=== PATIENT | female | born 2000 | race Caucasian/White ===

== ENCOUNTER 2025-09-30 20:13 | Inpatient (IN) | payer BC ==
[~2025-09-30 20:13] MED LIST: Iopamidol-370 76% 500 ML MDV (1 ML CHARGE) ONE
[2025-09-30] MEDS ORDERED: Ondansetron PF 4 MG/2 ML Vial ONE ×2 (21:12→23:08)
[2025-09-30 21:21] LABS: #Basophils 0.06 10x3/uL (0.0-0.2); #Eosinophils 0.05 10x3/uL (0.0-0.7); #Monocytes 0.26 10x3/uL (0.11-0.59); #Neutrophils 2.47 10x3/uL (1.40-6.50); %Basophils 1.5 % (0.0-1.0); %Eosinophils 1.3 % (0.0-10.0); %Lymphocytes 26.3 % (21.0-51.0); %Monocytes 6.7 % (0.0-10.0); %Neutrophils 63.7 % (42.0-75.0); Hematocrit 42.0 % (36.0-47.0); Hemoglobin 14.0 g/dL (12.0-16.0); Mean Corpuscular Hemoglobin 35.8 pg (27.0-31.0); Mean Corpuscular Volume 107.4 fL (78.0-98.0); Platelet Count 184 10x3/uL (130-400); Red Blood Cell (RBC) Count 3.91 mill/uL (4.20-5.40); White Blood Cell (WBC) Count 3.88 10x3/uL (4.8-10.8)
[2025-09-30 21:26] LABS: Bacteria/HPF None Seen HPF (None Seen); CAUTI Indications for Culture Dysuria,urgency,freq; Glucose, Urine (Dipstick) Normal (Negative); Leukocyte Negative Leu/uL (Negative); Protein, Urine (Dipstick) 70 mg/dL (Neg-Trace); RBC/HPF 0-3 HPF (0-3); Specific Gravity, Urine 1.027 (1.002-1.036); WBC/HPF 0-3 HPF (0-3)
[2025-09-30 21:27] LABS: BHCG - Serum Negative (NEGATIVE); Pregs Control Background? CLEAR/WHITE (CLR/WHITE); Pregs Control Bar Appear? YES (CONTROL BAR)
[2025-09-30 21:27] LABS: Urine Culture Reflex No No
[2025-09-30 22:53] LABS: Acetaminophen Less than 10 mcg/mL (Less than 10); Salicylate Less than 8.0 mg/dL (Less than 8.0)
[2025-09-30 23:44] LABS: ALT (SGPT) 153 U/L (Less than 34); AST (SGOT) 285 U/L (11-34); Albumin 4.0 g/dL (3.1-4.5); Alkaline Phosphatase 164 U/L (40-110); BUN (Urea Nitrogen) 9 mg/dL (7.0-18.7); Bilirubin, Total 0.7 mg/dL (0.3-1.2); Calc. Creatinine Clearance 0 mL/min (70-130); Calcium 9.1 mg/dL (7.8-10.44); Carbon Dioxide Less than 8 mmol/L (22-29); Chloride 103 mmol/L (98-107); Globulin 3.7 g/dL (2.4-3.5); Glucose 98 mg/dL (70-105); Lipase 79 U/L (8-78); Potassium 5.4 mmol/L (3.5-5.1); Sodium 137 mmol/L (136-145)
[2025-10-01 00:35] LABS: Base Excess -18.9 mEq/L (-2.0 to +3.0); Calcium, Ionized (venous) 1.06 mmol/L (1.16-1.32); Chloride (VBG) 105 mmol/L (98-106); Hematocrit-VBG 39 % (36.0-47.0); Hemoglobin (Hb) 13.3 g/dL (11.7-15.5); Potassium (VBG) 5.35 mmol/L (3.70-5.30); Sodium 138 mmol/L (133-146)
[2025-10-01 00:37] LABS: Actual Bicarbonate (HCO3v) 7.5 mEq/L (22-28)
[2025-10-01 00:43] LABS: INR-International Normal Ratio 1.1; Prothrombin Time 13.9 sec (12.0-14.7)
[2025-10-01 00:44] LABS: PTT 28.0 sec (22.9-36.1)
[2025-10-01] MEDS ORDERED: Electrolyte Replacement Protocol 1 EACH FS SCH (02:15)
[2025-10-01] MEDS ORDERED: Potassium Chloride 20 MEQ in Premix 1 BAG IVPB PRN (03:00)
[2025-10-01] MEDS ORDERED: PHOS-NAK 1 PKT PACK PO PRN (03:00)
[2025-10-01] MEDS ORDERED: Magnesium 2 GM/50 ML(in water) 2 GM in Premix 1 BAG IVPB PRN (03:00)
[2025-10-01 08:39] LABS: #Basophils 0.03 10x3/uL (0.0-0.2); #Eosinophils Less than 0.03 10x3/uL (0.0-0.7); #Monocytes 0.71 10x3/uL (0.11-0.59); #Neutrophils 2.42 10x3/uL (1.40-6.50); %Basophils 0.7 % (0.0-1.0); %Eosinophils 0.2 % (0.0-10.0); %Lymphocytes 29.6 % (21.0-51.0); %Monocytes 15.7 % (0.0-10.0); %Neutrophils 53.4 % (42.0-75.0); Hematocrit 33.7 % (36.0-47.0); Hemoglobin 11.1 g/dL (12.0-16.0); Mean Corpuscular Hemoglobin 35.7 pg (27.0-31.0); Mean Corpuscular Volume 108.4 fL (78.0-98.0); Platelet Count 141 10x3/uL (130-400); Red Blood Cell (RBC) Count 3.11 mill/uL (4.20-5.40); White Blood Cell (WBC) Count 4.53 10x3/uL (4.8-10.8)
[2025-10-01] MEDS: Ondansetron PF 4 MG/2 ML Vial IVP PRN (08:45)
[2025-10-01] MEDS: Pantoprazole 40 MG DR.TAB PO SCH (08:57)
[2025-10-01] MEDS: Mupirocin 1 GM TUBE NASAL DECOLONIZATION NASAL SCH (08:58)
[2025-10-01] MEDS ORDERED: Multivit, Therapeutic 1 TAB PO SCH (09:00)
[2025-10-01] MEDS ORDERED: Enoxaparin 40 MG (0.4 mL) SYRINGE SC SCH (09:00)
[2025-10-01] MEDS ORDERED: Folic Acid 1 MG TAB PO SCH (09:00)
[2025-10-01 09:09] LABS: ALT (SGPT) 108 U/L (Less than 34); AST (SGOT) 175 U/L (11-34); Albumin 3.2 g/dL (3.1-4.5); Alkaline Phosphatase 120 U/L (40-110); Anion Gap 16 mmol/L (10-20); BUN (Urea Nitrogen) 8 mg/dL (7.0-18.7); Bilirubin, Total 1.0 mg/dL (0.3-1.2); Calc. Creatinine Clearance 163 mL/min (70-130); Calcium 8.1 mg/dL (7.8-10.44); Carbon Dioxide 17 mmol/L (22-29); Chloride 104 mmol/L (98-107); Globulin 2.8 g/dL (2.4-3.5); Glucose 155 mg/dL (70-105); Potassium 4.1 mmol/L (3.5-5.1); Sodium 133 mmol/L (136-145)
[2025-10-01] MEDS: Multivitamins, Adult 10 ML, Thiamine HCl 100 MG, Folic Acid 1 MG in Dextrose 5 %-0.45 %... IV SCH (09:52)
[2025-10-01] MEDS: Milk Of Magnesia 30 ML UDCUP PO SCH (11:51)
[2025-10-01] MEDS: Senokot S 8.6-50 MG TAB PO SCH (11:51)
[2025-10-01] MEDS: Sodium Bicarbonate Tab 325 MG TAB PO SCH (12:56)
[2025-10-01] MEDS: FLU (Fluarix Triv) 25-26 (6MOS UP)/PF 45 MCG/0.5 ML Syringe IM ONE (12:57)
[2025-10-01] MEDS: PNEUMOC 20-VAL CONJ-DIP CRM/PF 0.5 ML SYRINGE IM ONE (12:57)
[2025-10-01 13:41] LABS: ALT (SGPT) 103 U/L (Less than 34); AST (SGOT) 161 U/L (11-34); Albumin 3.3 g/dL (3.1-4.5); Alkaline Phosphatase 120 U/L (40-110); Anion Gap 15 mmol/L (10-20); BUN (Urea Nitrogen) 7 mg/dL (7.0-18.7); Bilirubin, Total 1.0 mg/dL (0.3-1.2); Calc. Creatinine Clearance 168 mL/min (70-130); Calcium 8.4 mg/dL (7.8-10.44); Carbon Dioxide 19 mmol/L (22-29); Chloride 104 mmol/L (98-107); Globulin 2.8 g/dL (2.4-3.5); Glucose 185 mg/dL (70-105); Potassium 3.8 mmol/L (3.5-5.1); Sodium 134 mmol/L (136-145)
[2025-10-02] MEDS: Calcium Carbonate 500 MG ChewTAB PO PRN (02:21)
[2025-10-02 03:29] LABS: #Basophils Less than 0.03 10x3/uL (0.0-0.2); #Eosinophils 0.04 10x3/uL (0.0-0.7); #Monocytes 0.45 10x3/uL (0.11-0.59); #Neutrophils 3.02 10x3/uL (1.40-6.50); %Basophils 0.5 % (0.0-1.0); %Eosinophils 0.9 % (0.0-10.0); %Lymphocytes 18.4 % (21.0-51.0); %Monocytes 10.3 % (0.0-10.0); %Neutrophils 69.4 % (42.0-75.0); Hematocrit 33.7 % (36.0-47.0); Hemoglobin 11.1 g/dL (12.0-16.0); Mean Corpuscular Hemoglobin 35.1 pg (27.0-31.0); Mean Corpuscular Volume 106.6 fL (78.0-98.0); Platelet Count 127 10x3/uL (130-400); Red Blood Cell (RBC) Count 3.16 mill/uL (4.20-5.40); White Blood Cell (WBC) Count 4.35 10x3/uL (4.8-10.8)
[2025-10-02 03:48] LABS: Albumin 3.1 g/dL (3.1-4.5); Anion Gap 12 mmol/L (10-20); BUN (Urea Nitrogen) 4 mg/dL (7.0-18.7); BUN/Creatinine Ratio 7.69; Calc. Creatinine Clearance 185 mL/min (70-130); Calcium 8.7 mg/dL (7.8-10.44); Carbon Dioxide 22 mmol/L (22-29); Chloride 101 mmol/L (98-107); Glucose 148 mg/dL (70-105); Potassium 3.4 mmol/L (3.5-5.1); Sodium 132 mmol/L (136-145)
[2025-10-02 10:02] LABS: Magnesium 1.6 mg/dL (1.6-2.6)
[2025-10-02] MEDS: Magnesium 2 GM/50 ML(in water) 2 GM in Premix 1 BAG IVPB SCH (13:21)
[2025-10-02] MEDS ORDERED: Potassium Chloride 20 MEQ in Premix 1 BAG IVPB PRN (16:00)
[2025-10-02] MEDS ORDERED: Magnesium Sulfate In Water 4 GM in Premix 1 BAG IVPB PRN (16:00)
[2025-10-03 05:03] LABS: #Basophils 0.03 10x3/uL (0.0-0.2); #Eosinophils 0.08 10x3/uL (0.0-0.7); #Monocytes 0.18 10x3/uL (0.11-0.59); #Neutrophils 1.36 10x3/uL (1.40-6.50); %Basophils 1.1 % (0.0-1.0); %Eosinophils 3.0 % (0.0-10.0); %Lymphocytes 38.9 % (21.0-51.0); %Monocytes 6.7 % (0.0-10.0); %Neutrophils 50.3 % (42.0-75.0); Hematocrit 36.0 % (36.0-47.0); Hemoglobin 11.8 g/dL (12.0-16.0); Mean Corpuscular Hemoglobin 35.2 pg (27.0-31.0); Mean Corpuscular Volume 107.5 fL (78.0-98.0); Platelet Count 121 10x3/uL (130-400); Red Blood Cell (RBC) Count 3.35 mill/uL (4.20-5.40); White Blood Cell (WBC) Count 2.70 10x3/uL (4.8-10.8)
[2025-10-03 05:16] LABS: Albumin 3.2 g/dL (3.1-4.5); Anion Gap 11 mmol/L (10-20); BUN (Urea Nitrogen) Less than 4 mg/dL (7.0-18.7); Calc. Creatinine Clearance 196 mL/min (70-130); Calcium 8.8 mg/dL (7.8-10.44); Carbon Dioxide 24 mmol/L (22-29); Chloride 104 mmol/L (98-107); Glucose 116 mg/dL (70-105); Potassium 3.2 mmol/L (3.5-5.1); Sodium 136 mmol/L (136-145)
[2025-10-03] MEDS: PHOS-NAK 1 PKT PACK PO PRN (05:48)
[2025-10-03] MEDS: Thiamine 100 MG TAB PO SCH (08:16)
[2025-10-03] MEDS: Folic Acid 1 MG TAB PO SCH (08:16)
[2025-10-03] MEDS: Multivitamin W/ Minerals 1 TAB PO SCH (08:16)
[2025-10-03 10:32] LABS: Potassium 4.7 mmol/L (3.5-5.1)
[2025-10-04 07:06] LABS: #Basophils 0.03 10x3/uL (0.0-0.2); #Eosinophils 0.10 10x3/uL (0.0-0.7); #Monocytes 0.23 10x3/uL (0.11-0.59); #Neutrophils 1.48 10x3/uL (1.40-6.50); %Basophils 0.9 % (0.0-1.0); %Eosinophils 3.2 % (0.0-10.0); %Lymphocytes 41.1 % (21.0-51.0); %Monocytes 7.3 % (0.0-10.0); %Neutrophils 46.9 % (42.0-75.0); Hematocrit 35.9 % (36.0-47.0); Hemoglobin 12.2 g/dL (12.0-16.0); Mean Corpuscular Hemoglobin 36.0 pg (27.0-31.0); Mean Corpuscular Volume 105.9 fL (78.0-98.0); Platelet Count 134 10x3/uL (130-400); Red Blood Cell (RBC) Count 3.39 mill/uL (4.20-5.40); White Blood Cell (WBC) Count 3.16 10x3/uL (4.8-10.8)
[2025-10-04 07:21] LABS: Albumin 3.2 g/dL (3.1-4.5); Anion Gap 14 mmol/L (10-20); BUN (Urea Nitrogen) Less than 4 mg/dL (7.0-18.7); Calc. Creatinine Clearance 204 mL/min (70-130); Calcium 9.1 mg/dL (7.8-10.44); Carbon Dioxide 24 mmol/L (22-29); Chloride 102 mmol/L (98-107); Glucose 115 mg/dL (70-105); Potassium 3.9 mmol/L (3.5-5.1); Sodium 136 mmol/L (136-145)
[2025-10-04] MEDS ORDERED: Thiamine 100 MG TAB PO SCH (09:00)
[2025-10-04 11:11] VITALS: TEMP 98.4
[2025-10-04 12:15] VITALS: BP 124/87
== END 2025-10-04 14:55 | disposition home or self-care (01) | DRG 640 ==
LOC: ERS 20:13 → ERHOLD 10-01 02:10 → CCU 10-01 06:38 → SURG B 10-02 04:34
PROVIDERS: ADMIT Internal Medicine; ATTEND Internal Medicine
DX: E87.29 Other acidosis (principal); K85.90 Acute pancreatitis without necrosis or infection, unspecified; K92.0 Hematemesis; F33.9 Major depressive disorder, recurrent, unspecified; F10.239 Alcohol dependence with withdrawal, unspecified; K70.10 Alcoholic hepatitis without ascites; E87.1 Hypo-osmolality and hyponatremia; E87.21 Acute metabolic acidosis; I10 Essential (primary) hypertension; F41.9 Anxiety disorder, unspecified; K20.90 Esophagitis, unspecified without bleeding; E87.6 Hypokalemia; E83.42 Hypomagnesemia; E83.39 Other disorders of phosphorus metabolism; K76.0 Fatty (change of) liver, not elsewhere classified; F10.229 Alcohol dependence with intoxication, unspecified
CPT/HCPCS: 36415; 36416; 74018; 74177; 80053; 80069; 80307; 81001; 82010; 82805; 83605; 83690; 83735; 84703; 85025; 85610; 85730; 87040; 87428; 93005; 96361; 96374; 96375; 96376; J2060; J2270; J2272; J2405; J3411; J3475; J7030; J7042; J7050; Q9967